=== PATIENT | female | born 1990 | race Caucasian/White ===

== ENCOUNTER 2021-06-20 16:58 | Emergency (ER) | payer MEDICARE, OTHER | END 2021-06-20 19:51 | disposition left against medical advice (07) | LOC: FER 16:58 | DX: J02.9 Acute pharyngitis, unspecified (principal); F17.210 Nicotine dependence, cigarettes, uncomplicated; F41.9 Anxiety disorder, unspecified; Z79.891 Long term (current) use of opiate analgesic; Z79.899 Other long term (current) drug therapy | CPT/HCPCS: 87070; 87880; 99283 ==